=== PATIENT | female | born 1965 | race African-American/Black ===

== ENCOUNTER 2022-05-13 08:07 | Outpatient (CLI) | payer BC, SELFPAY ==
[2022-05-13 09:30] LABS: Basophils Percent Auto 0.3 % (0.2-1.2); Eosinophils Percent Auto 0.6 % (0-4.4); Hematocrit 37.2 % (37.0-47.0); Hemoglobin 11.7 g/dL (12.0-15.0); Immature Granulocyte Absolute 0.02 K/mm3 (0.00-0.031); Immature Granulocyte Percent A 0.3 % (0-0.5); Lymphocytes Absolute Auto 2.28 K/mm3 (0.9-3.2); Lymphocytes Percent Auto 36.8 % (18.3-44.2); Mean Corpuscular HGB Conc 31.5 g/dl (32-36); Mean Corpuscular Volume 85.7 fl (80-100); Mean Platelet Volume 10.6 fl (7.4-10.4); Monocytes Absolute Auto 0.5 K/mm3 (0.1-0.6); Monocytes Percent Auto 7.3 % (2.6-8.5); Neutrophils Absolute Auto 3.4 K/mm3 (1.3-6.7); Neutrophils Percent Auto 54.7 % (45.5-73.1); Platelet Count Result 255 k/mm3 (150-375); Red Blood Count 4.34 M/mm3 (4.2-5.4); Red Cell Distribution Width 14.6 % (11.5-14.5); White Blood Count 6.2 K/mm3 (4.5-10.0)
[2022-05-13 09:36] LABS: Bilirubin Urine Negative (Negative); Blood Urine Negative (Negative); Color Urine Yellow (Yellow); Glucose Urine UA Negative (Negative); Ketones Urine Negative (Negative); Leukocyte Esterase Ur Negative LEU/UL (Negative); Nitrate Urine Negative (Negative); Protein Urine Negative (Negative); Urobilinogen Urine 0.2 mg/dL (<2.0)
[2022-05-13 09:39] LABS: Add Urine Microscopic? NO; Albumin Level 4.7 g/dL (3.5-5.1); Anion Gap 5 mmol/L (8-16); Appearance Urine Clear (Clear); Blood Urea Nitrogen 15 mg/dL (7-17); Calcium 9.1 mg/dL (8.4-10.2); Carbon Dioxide 31 mmol/L (22-30); Chloride 104 mmol/L (98-107); Estimated Glomerular Filt Rate > 60; Glucose 109 mg/dL (65-110); Potassium 4.1 mmol/L (3.4-5.0); Sodium 140 mmol/L (137-145)
[2022-05-13 09:45] LABS: INR 0.9
[2022-05-13 09:46] LABS: Hemoglobin A1C 5.7 % (<5.7); Partial Thromboplastin Time 32.2 SECONDS (22.3-36.8)
[2022-05-13 09:46] LABS: Urine Cotinine NEGATIVE
== END 2022-05-13 08:08 | disposition home or self-care (01) ==
PROVIDERS: PCP Family Medicine; Visit Provider Orthopaedic Surgery
DX: M16.12 Unilateral primary osteoarthritis, left hip (principal); Z01.818 Encounter for other preprocedural examination
CPT/HCPCS: 80048; 80307; 81003; 82040; 83036; 85025; 85610; 85730; 86850; 86900; 86901; 87081

== ENCOUNTER 2022-05-25 00:02 | Day surgery (SDC) | payer BC, SELFPAY ==
[2022-05-13 08:20] VITALS: BMI 25.5
--- NOTE | 2022-05-13 08:40 | PC.NURSE ---
Report to the Outpatient Waiting Room, entrance under the green pavilion located off [facility], at time __1000 on date _05/25/22 . OR Time: _1200 . - You and your visitor will be asked a series of questions to screen for COVID 19 for your protection. - Only one visitor is allowed at this time. - The patient visitor is requested to leave or wait in car when not with patient. - A mask is required within the hospital. Patients may have clear liquids (water, carbonated beverages, clear teas, apple juice) until 3 hours prior to surgery with a maximum of 20 ounces. - No food from midnight until time of surgery - Infants may have breast milk until 4 hours before surgery, infant formula 6 hours prior to surgery. - Children will be allowed to drink immediately following surgery. If applicable, please bring a bottle or sippy cup to assist with drinking. Juice, water, soda, and popsicles are readily available. For infants on formula, please bring formula the day of surgery. Pacifiers are allowed. Take the following medications with a SIP of water the morning of surgery: ____BUSPIRONE,DULOXETINE Medications to discontinue per physician ALL VITAMINS AND SUPPLEMENTS 3 DAYS PRE OP Date to take last dose_05/21/22 Please no make-up, nail bahraini, hairspray, perfume, deodorant, or body powder the day of surgery. No jewelry (including any body piercings) or valuables the day of surgery, leave them at home. Please take a shower or bath the night before, or the morning of, surgery with an antibacterial soap. Wear comfortable, loose fitting clothing. Children are encouraged to wear pajamas. - Jewelry must be removed prior to entering the operating room. Rings and piercings that are not removed may be cut off. - The hospital will not accept responsibility for valuables. - Please leave all valuables, including medications, at home the day of surgery. If you are going home after surgery, a licensed otr truck driver must drive you home. - NO public transportation without another adult. - We recommend that an adult stay with you for 24 hours following discharge. - We also recommend that you do not drive, make important decision, drink alcoholic beverages, or take any drugs that were not prescribed by your health care provider for at least 24 hours after your discharge time. For Pediatric surgeries, we recommend two adults accompany the child home (only one inside the building at this time). Follow any additional instructions given to you from your surgeon. If you or anyone in your household have experienced Covid symptoms in the past week, please notify your surgeon or the nurse liaison at the phone number below for possible testing. VERBAL AND WRITTEN instructions given to _PATIENT and asked if any additional questions and then verbalized understanding. Patient advised to call surgeon office or pre surgery nurse liaison [phone] if any additional questions.
[2022-05-13 08:59] VITALS: BP 144/88; PULSE 93; RESP 18; TEMP 37.1; O2SAT 98
--- NOTE | 2022-05-24 14:58 | WPDANESEPPF ---
Anes - Initial Pre Proc Eval Procedure: Operation Date: 05/25/22 12:00 Proposed Procedures p Left Total Hip Arthroplasty - Arturo Grigsby MD Date/Time: 05/24/22 14:58 Surgeon: Arturo Grigsby MD Pre Op Diagnosis: Lt Hip DJD Patient Data Age: 56 Gender: F Height: 1.6 m Weight: 65.4 kg Last Vital Signs Temp 37.1 C 05/13/22 08:59 Pulse 93 05/13/22 08:59 Resp 18 05/13/22 08:59 BP 144/88 H 05/13/22 08:59 Pulse Ox 98 05/13/22 08:59 O2 Del Method Room Air 05/13/22 08:59 Allergies Allergy/AdvReac Type Severity Reaction Status Date / Time No Known Allergies Allergy Verified 05/25/22 09:54 Home Medications Medication Instructions Recorded Confirmed Type amlodipine 5 mg tablet 5 mg PO HS 02/18/22 05/25/22 History buspirone 10 mg tablet 10 mg PO BID 02/18/22 05/25/22 History duloxetine 30 mg capsule,delayed 30 mg PO DAILY 02/18/22 05/25/22 History release sprinkle acetaminophen 500 mg tablet 1,000 mg PO Q6H PRN Pain 05/13/22 05/25/22 History (Acetaminophen Extra Strength) calcium carbonate 600 mg-vitamin 1 tablet PO DAILY 05/13/22 05/25/22 History D3 10 mcg (400 unit) chewable tablet (Calcium 600 with Vitamin D3) pantoprazole 20 mg tablet,delayed 20 mg PO PRN PRN Heartburn 05/13/22 05/25/22 History release Patient hx anesthesia problems: none Family hx anesthesia problems: none Results Review: All pre-operative results and documents have been reviewed as part of the pre-operative evaluation. [facility] Past Medical History Medical History (Updated 05/24/22 @ 15:01 by Jorge Quintanilla MD) Arthritis Chronic GERD Closed fracture of right hip requiring operative repair IM Shahid insertion s/p fx: 1980 Depression HTN (hypertension) Social History Social History Smoking status: Never smoker Additional smoking assessment comments: DENIES ANY FORM OF TOBACCO USE Alcohol intake: never Substance use: never Living arrangements: with family Additional occupation/education comments: self employed Gender identity (if verbalized by the patient): Female Spiritual care concerns: No Anes - Eval Final PreProcedure Day of Procedure 05/24/22 14:58 Patient weight: normal Heart: regular rate and rhythm Lungs: clear to auscultation and normal air movement Airway: Mallampati scale class II Neurological: alert and oriented Last oral intake: >/= 8 hours ASA classification: II Emergent: no Anesthetic plan: proceed Anesthesia type and monitoring: general ETT Results Review: All pre-operative results and documents have been reviewed as part of the pre-operative evaluation. Informed Consent: The patient's anesthetic plan and its attendant risks and benefits were discussed with the patient/family/POA. Questions were solicited and answers provided to the satisfaction of the patient/family/POA.
--- NOTE | 2022-05-24 15:17 | PCCCNOTE ---
Per Registration notes NPR for CPT code 91232, surgery is documented as Left Total Hip Arthroplasty. Emailed [facility] which states that they can only call precert on the CPT code written. Called to Dr. Grigsby's office left vm message with hvac commercial salesperson, Bee. Return phone call received, Bee states that she has approval for correct CPT that matches hip and she will fax it to care coordination.
[2022-05-25] VITALS (18 sets, daily range): BP systolic 90–142; BP diastolic 53–91; PULSE 57–99; RESP 12–21; TEMP 36.4–36.8; O2SAT 95–100
--- NOTE | ~2022-05-25 | XR_ITS ---
EXAM: XR hip LT min 2V DATE: 05/25/2022 15:19 HISTORY: LT TOTAL HIP . COMPARISON: 02/18/2022. FINDINGS: Interval left total hip arthroplasty. Hardware in good position. No unexpected radiopaque foreign body. Subcutaneous emphysema. Osteitis pubis. IMPRESSION: Expected postsurgical change, with no radiographic evidence of procedure or hardware rela delmer complication. Reviewed, dictated and finalized at location K. IMPRESSION: Expected postsurgical change, with no radiographic evidence of proc edure or hardware related complication.
[2022-05-25] MEDS: ACETAMINOPHEN 500 MG TABLET 1000 MG PO (09:58)
--- NOTE | 2022-05-25 09:59 | WPDHPUPDATE1 ---
History and Physical Update Update Date/Time: 05/25/22 09:59 History and Physical has been reviewed, including an updated exam of the patient. There are NO changes in the patient's condition. Risks, benefits, and alternatives have been discussed and questions answered. Patient agrees to proceed with procedure.
[2022-05-25] MEDS: LACTATED RINGERS 1,000 ML 30 ML IV CONT ×2 (10:26→14:59)
[2022-05-25] MEDS: TRANEXAMIC ACID 1,000MG/ISO100 1,000 MG/100 ML BAG 200 MG IVPB (11:39)
[2022-05-25] MEDS: ceFAZolin 2 GM/D5W 50 ML 2 GM/50 ML BAG IVPB ×2 (12:18→20:45)
[2022-05-25] MEDS: TRANEXAMIC ACID 1,000 MG/10 ML AMPUL 1000 MG IV PUSH (14:12)
--- NOTE | 2022-05-25 15:25 | W.PM.PROC2 ---
Procedure Note - Detailed Date of Procedure 05/25/22 Pre-op Diagnosis Lt Hip DJD Post-op Diagnosis Same Procedure Performed L SB Surgeon Arturo Grigsby MD Anesthesia General Description of Procedure THE PATIENT WAS TAKEN TO THE OPERATING ROOM IN STABLE CONDITION AND WAS PLACED IN THE LATERAL DECUBITUS AND THE LEFT LOWER EXTREMITY WAS PREPPED AND DRAPED IN THE STERILE FASHION. INCISION WAS MADE IN THE POSTERIOR LATERAL SIDE OF THE HIP, DOWN TO THE FASCIA LAYER. THE FASCIA WAS INCISED. THE HIP WAS EXPOSED. THE SHORT EXTERNAL ROTATORS WERE EXPOSED. THE SCIATIC NERVE WAS IDENTIFIED. IT WAS SCARRED DOWN FROM PREVIOUS HIP TRAUMA. THE SCIATIC NERVE WAS THEN EXPOSED FOR IMPROVED VISUALIZATION. INCISION WAS MADE THROUGH THE SHORT EXTERNAL ROTATORS AND THE CAPSULE OF THE HIP JOINT. THE HIP WAS DISLOCATED. AN OSTEOTOMY WAS MADE TO THE FEMORAL NECK ABOUT 1 CM PROXIMAL TO THE LESSER TROCHANTER. THE ACETABULUM WAS EXPOSED. THERE WAS SEVERE DJD SEEN. BEGINNING WITH A 44 REAMER THE ACETABULUM WAS REAMED TO 49 MM. A 50 MM TRIAL WAS PLACED IN 35 DEG OF ABDUCTION AND ANTEVERSION WAS IN ALIGNMENT WITH THE TRANS ACETABULAR LIGAMENT. THE FIT WAS EXCELLENT. THE TRIAL WAS REMOVED. A 50 MM BIOMET G7 COMPONENT WAS THEN TAPPED IN TO PLACE IN 35 DEG OF ABDUCTION AND ANTEVERSION IN ALIGNMENT WITH THE TRANSVERSE ACETABULAR LIGAMENT. THE FIT WAS EXCELLENT. THE ACETABULAR LINER WAS PLACED AND CHECKED FOR STABILITY. NEXT THE FEMUR WAS PREPARED WITH INITIAL CANAL FINDER THEN SEQUENTIAL BROACHING WITH A TAPERLOC HIP SYSTEM, UNTIL A 7 BROACH FIT WELL IN 15 OF ANTEVERSION. A -3 HIGH OFFSET NECK WITH 36 MM HEAD TRIAL WAS PLACED. THE SHUCK TEST WAS EXCELLENT AND THE STABILITY IN FLEXION AND ROTATION WAS EXCELLENT. LEG LENGTHS WERE GROSSLY EQUAL. TRIALS WERE REMOVED. A BIOMET TAPERLOC 7 STEM WAS PLACED WITH A HIGH OFFSET NECK THE FIT WAS EXCELLENT IN 15 DEG OF ANTEVERSION. A -3 CERAMIC 36 MM FEMORAL CERAMIC HEAD WAS PLACED. THE HIP WAS TRIALED AND THE STABILITY WAS EXCELLENT WERE THE LEG LENGTHS AND THE SHUCK TEST. THE WOUND WAS IRRIGATED WITH STERILE BETADINE AND WATER FOR 3 MIN. THEN WASHED AGAIN. THE CAPSULE AND THE EXTERNAL ROTATORS WERE APPROXIMATED WITH NUMBER 1 VICRYL. THE FASCIA WITH No 2 QUIL AND THE SUB CUTANEOUS LAYER WITH 2-0 ABSORBABLE SUTURE WITH A RUNNING 3-0 SUBCUTICULAR LAYER WELL. DERMABOND WAS PLACED AND STERILE DRESSING WAS APPLIED. PATIENT WAS PLACED BACK ON TO THE SUPINE POSITION AND WAS EXTUBATED Estimated Blood Loss -200.0 Complications No immediate complications Condition Stable Disposition PACU
[2022-05-25] MEDS: fentaNYL CITRATE INJ (*CRX) 100 MCG/2 ML VIAL 25 MCG IV PUSH ×4 (15:37→16:03)
[2022-05-25] MEDS: oxyCODONE HCL (*CRX) 5 MG TAB IR PO (16:44)
--- NOTE | 2022-05-25 17:13 | SUR.PHASEI ---
DINNER ORDERED. AT BEDSIDE. AWAITING CALL FROM [facility] TO ADMIT PATIENT.
--- NOTE | 2022-05-25 18:09 | PC.NURSE ---
This patient, Nahomy Manley, was admitted to Medical Room 254-01. Patient/family oriented to hospital policies and general routines including ID bracelet, bed and alarms, visiting hours, pain management, procedures, bathroom and other care routines, personal items, smoking policy, room service/diet, and visiting hours. Information on how to activate the Rapid Response Team has been discussed. Patient/Family are encouraged to report perceived risks to care and to ask questions if they do not understand what they are told or what they should do.
[2022-05-25] MEDS: DEXTROSE 5%/0.45% SOD CHL 1,000 ML 80 ML IV CONT (18:36)
[2022-05-25] MEDS: ONDANSETRON INJ 4 MG/2 ML VIAL IV PUSH ×2 (18:39→22:58)
[2022-05-25] MEDS: KETOROLAC 15 MG/ML VIAL (*BKC) IV PUSH ×2 (18:42→23:00)
[2022-05-25] MEDS: busPIRone HCL 10 MG TABLET PO (18:43)
[2022-05-25] MEDS: amLODIPine BESYLATE 5 MG TABLET PO (20:45)
[2022-05-26] VITALS: BP 110/64; PULSE 96; RESP 18; TEMP 36.7; O2SAT 100
[2022-05-26] MEDS: HYDROcodone/acetaminophen (*CRX) 7.5-325 MG TABLET 1 TAB PO (03:06)
[2022-05-26] MEDS: ceFAZolin 2 GM/D5W 50 ML 2 GM/50 ML BAG IVPB ×2 (03:06→12:14)
[2022-05-26 04:00] VITALS: BP 108/65; PULSE 84; RESP 18; TEMP 36.7; O2SAT 100
[2022-05-26] MEDS: KETOROLAC 15 MG/ML VIAL (*BKC) IV PUSH ×3 (05:00→17:15)
[2022-05-26] MEDS: MORPHINE SULFATE (*CRX) 4 MG/ML INJ 3 MG IV PUSH (05:03)
[2022-05-26 06:03] LABS: Basophils Percent Auto 0.1 % (0.2-1.2); Hematocrit 27.6 % (37.0-47.0); Hemoglobin 8.7 g/dL (12.0-15.0); Immature Granulocyte Absolute 0.08 K/mm3 (0.00-0.031); Immature Granulocyte Percent A 0.6 % (0-0.5); Lymphocytes Absolute Auto 1.16 K/mm3 (0.9-3.2); Lymphocytes Percent Auto 8.7 % (18.3-44.2); Mean Corpuscular HGB Conc 31.5 g/dl (32-36); Mean Corpuscular Hemoglobin 26.9 pg (26-34); Mean Corpuscular Volume 85.4 fl (80-100); Mean Platelet Volume 10.9 fl (7.4-10.4); Monocytes Absolute Auto 1.2 K/mm3 (0.1-0.6); Monocytes Percent Auto 9.3 % (2.6-8.5); Neutrophils Absolute Auto 10.9 K/mm3 (1.3-6.7); Neutrophils Percent Auto 81.3 % (45.5-73.1); Platelet Count Result 201 k/mm3 (150-375); Red Blood Count 3.23 M/mm3 (4.2-5.4); Red Cell Distribution Width 14.3 % (11.5-14.5); White Blood Count 13.4 K/mm3 (4.5-10.0)
[2022-05-26 06:21] LABS: Anion Gap 5 mmol/L (8-16); Blood Urea Nitrogen 12 mg/dL (7-17); Calcium 8.7 mg/dL (8.4-10.2); Carbon Dioxide 28 mmol/L (22-30); Chloride 102 mmol/L (98-107); Estimated CRCL calculation 72 ml/min; Estimated Glomerular Filt Rate > 60; Glucose 131 mg/dL (65-110); Potassium 3.9 mmol/L (3.4-5.0); Sodium 135 mmol/L (137-145)
[2022-05-26] MEDS: ASPIRIN 325 MG ENTERIC TABLET 650 MG PO (09:19)
[2022-05-26] MEDS: busPIRone HCL 10 MG TABLET PO (09:19)
[2022-05-26] MEDS: SENNA/DOCUSATE SODIUM TABLET 2 TAB PO ×2 (09:19→17:14)
[2022-05-26] MEDS: polyethylene glycoL 3350 17 GM POWD.PACK PO (09:19)
[2022-05-26 10:56] VITALS: BP 115/63; PULSE 66; RESP 18; TEMP 36.5; O2SAT 100
--- NOTE | 2022-05-26 11:36 | P.PNAN_ITS ---
Anes - Prog Note Post-Op Date/Time: 05/26/22 11:36 Vital Signs: Last Vital Signs Temp 36.5 C 05/26/22 10:56 Pulse 66 05/26/22 10:56 Resp 18 05/26/22 10:56 BP 115/63 05/26/22 10:56 Pulse Ox 100 05/26/22 10:56 O2 Del Method Room Air 05/26/22 09:20 O2 Flow Rate 6 05/25/22 15:15 Pain Score (VAS): 0 I/O: Intake & Output 05/25/22 05/26/22 05/26/22 23:59 07:59 15:59 Intake Total 250 50 240 Output Total 650 Balance 250 -600 240 Laboratory Tests 05/26/22 05:33 05/26/22 05:33 05/26/22 05/26/22 05:33 05:33 WBC 13.4 H RBC 3.23 L Hgb 8.7 L D Hct 27.6 L MCV 85.4 MCH 26.9 MCHC 31.5 L RDW 14.3 Plt Count 201 MPV 10.9 H Immature Gran % (Auto) 0.6 H Neut % (Auto) 81.3 H Lymph % (Auto) 8.7 L Gaines % (Auto) 9.3 H Eos % (Auto) 0.0 Baso % (Auto) 0.1 L Lymph # (Auto) 1.16 Gaines # (Auto) 1.2 H Eos # (Auto) 0.0 Baso # (Auto) 0.0 Abs Immat Gran (auto) 0.08 H Absolute Neuts (auto) 10.9 H Absolute Nucleated RBC 0.0 Nucleated RBC % 0.0 Sodium 135 L Potassium 3.9 Chloride 102 Carbon Dioxide 28 Anion Gap 5 L BUN 12 Creatinine 0.60 L Estim Creat Clear Calc 72 Estimated GFR > 60 Glucose 131 H Calcium 8.7 Patient Feedback: Patient satisfied with anesthetic care.
--- NOTE | 2022-05-26 14:51 | PM.PNORT ---
Progress Note: A&P Assessment and Plan (1) Degenerative joint disease of left hip: Qualifiers: Osteoarthritis type: primary Qualified Code(s): M16.12 - Unilateral primary osteoarthritis, left hip Code(s): M16.12 - Unilateral primary osteoarthritis, left hip Status: Acute Assessment and Plan: POD 1 DOING WELL. OK TO DC HOME F/U IN 3 WEEKS. Plan POD 1 DOING WELL. OK TO DC HOME F/U IN 3 WEEKS Subjective Subjective Date/Time Seen: 05/26/22 14:51 POD 1 DOING WELL. PAIN WELL CONTROLLED. NO CALF PAIN Exam Extrem: Other: VSS AFEBRILE DRESSING DRY NV INTACT NEG HOMANS SIGN CALF SOFT. Objective Data Vital Signs Vital Signs: Vital Signs - 24 hr 05/25/22 14:59 05/25/22 15:15 05/25/22 15:30 Temperature 36.5 C Pulse Rate 99 79 75 Respiratory Rate 14 21 H 21 H Blood Pressure 142/76 H 116/68 112/74 Pulse Oximetry 100 100 100 Oxygen Delivery Simple Face Mask Simple Face Mask Room Air Oxygen Flow Rate 6 6 05/25/22 15:45 05/25/22 16:00 05/25/22 16:15 Temperature Pulse Rate 72 69 88 Respiratory Rate 17 16 16 Blood Pressure 113/74 109/70 116/76 Pulse Oximetry 97 98 100 Oxygen Delivery Room Air Room Air Room Air Oxygen Flow Rate 05/25/22 16:23 05/25/22 16:35 05/25/22 16:50 Temperature Pulse Rate 87 93 82 Respiratory Rate 16 16 16 Blood Pressure 111/67 114/60 107/62 Pulse Oximetry 100 100 97 Oxygen Delivery Room Air Room Air Room Air Oxygen Flow Rate 05/25/22 17:05 05/25/22 17:20 05/25/22 17:35 Temperature Pulse Rate 82 77 84 Respiratory Rate 16 16 16 Blood Pressure 102/58 L 107/60 91/53 L Pulse Oximetry 97 97 97 Oxygen Delivery Room Air Room Air Room Air Oxygen Flow Rate 05/25/22 17:50 05/25/22 15:44 05/25/22 16:14 Temperature 36.8 C 36.4 C Pulse Rate 84 82 82 Respiratory Rate 16 12 14 Blood Pressure 90/53 L 105/61 121/77 Pulse Oximetry 99 95 95 Oxygen Delivery Room Air Oxygen Flow Rate 05/25/22 17:14 05/25/22 20:20 05/26/22 00:00 Temperature 36.6 C 36.6 C 36.7 C Pulse Rate 77 57 L 96 Respiratory Rate 16 18 18 Blood Pressure 118/79 113/67 110/64 Pulse Oximetry 99 96 100 Oxygen Delivery Oxygen Flow Rate 05/25/22 20:00 05/26/22 04:00 05/26/22 08:14 Temperature 36.7 C Pulse Rate 84 Respiratory Rate 18 Blood Pressure 108/65 Pulse Oximetry 100 Oxygen Delivery Room Air Room Air Oxygen Flow Rate 05/26/22 10:56 05/26/22 09:20 Temperature 36.5 C Pulse Rate 66 Respiratory Rate 18 Blood Pressure 115/63 Pulse Oximetry 100 Oxygen Delivery Room Air Oxygen Flow Rate Intake/Output Intake/Output: Intake & Output 05/23/22 05/24/22 05/25/22 05/26/22 23:59 23:59 23:59 23:59 Intake Total 400 290 Output Total 650 Balance 400 -360 Meds/Results Medications: Active Medications Generic Name Dose Route Start Last Admin Trade Name Matthewq PRN Reason Stop Dose Admin Acetaminophen 1,000 mg 05/25/22 18:01 Acetaminophen 500 Mg Tablet PO Q6H PRN Pain scale 1-4 Hydrocodone Bitart/Acetaminophen 1 tab 05/25/22 15:29 05/26/22 03:06 Hydrocodone/Acetaminophen (*Crx) 7.5-325 Mg Tablet PO 1 tab Q3H PRN Administration Pain Rated 4-6 Amlodipine Besylate 5 mg 05/25/22 21:00 05/25/22 20:45 Amlodipine Besylate 5 Mg Tablet PO 5 mg HS DEMETRIO Administration Aspirin 650 mg 05/26/22 09:00 05/26/22 09:19 Aspirin 325 Mg Enteric Tablet PO 650 mg DAILY DEMETRIO Administration Buspirone HCl 10 mg 05/25/22 18:01 05/26/22 09:19 Buspirone Hcl 10 Mg Tablet PO 10 mg BID DEMETRIO Administration Calcium Carbonate 500 mg 05/26/22 09:00 05/26/22 09:19 Calcium/Vitamin D 500 Mg Tablet PO 500 mg DAILY DEMETRIO Administration Diazepam 5 mg 05/25/22 15:29 Diazepam (*Crx) 5 Mg Tablet PO Q6H PRN Anxiety/Muscle Spasm Hydroxyzine HCl 50 mg 05/25/22 15:29 Hydroxyzine Hcl 25 Mg Tablet PO Q4H PRN Itching Lactated Ringer's 1,00
[2022-05-26 15:02] VITALS: BP 111/55; PULSE 79; RESP 18; TEMP 36.7; O2SAT 99
--- NOTE | 2022-05-26 17:18 | PM.DS ---
DS: Admitting Diagnosis Discharge Date 05/26/22 Admitting Diagnosis LEFT HIP DJD DS: Discharge Diagnosis Discharge Diagnosis (1) Degenerative joint disease of left hip: Qualifiers: Osteoarthritis type: primary Qualified Code(s): M16.12 - Unilateral primary osteoarthritis, left hip Code(s): M16.12 - Unilateral primary osteoarthritis, left hip Status: Acute Plan LEFT SB DS: Summary Hospital Course Reason for hospitalization: LEFT SB Hospital Course: PATIENT WAS ADMITTED S/P TOTAL LEFT TOTAL HIP ARTHROPLASTY FOR POSTOPERATIVE MEDICAL MANAGEMENT, PAIN CONTROL AND MOBILIZATION WITH PHYSICAL AND OCCUPATIONAL THERAPY. THE PATIENT PROGRESSED WELL WITH PT/OT. LABS AND VITALS REMAINED STABLE AND PAIN WELL CONTROLLED. THE PATIENT HAS BEEN CLEARED TO BE DISCHARGED HOME. FOLLOW UP APPOINTMENT SCHEDULED. DISCHARGE INSTRUCTIONS DISCUSSED AT LENGTH WITH THE PATIENT. MEDICATIONS REVIEWED. Status at Discharge Cognitive/behavioral status at discharge: STABLE Time Spent with Patient Time attestation: time spent providing and/or coordinating discharge services: 15 MIN DS: Data Data Completed and Pending Labs on day of discharge: Labs from last 24 hours 05/26/22 05/26/22 05:33 05:33 WBC 13.4 H RBC 3.23 L Hgb 8.7 L D Hct 27.6 L MCV 85.4 MCH 26.9 MCHC 31.5 L RDW 14.3 Plt Count 201 MPV 10.9 H Immature Gran % (Auto) 0.6 H Neut % (Auto) 81.3 H Lymph % (Auto) 8.7 L Kent % (Auto) 9.3 H Eos % (Auto) 0.0 Baso % (Auto) 0.1 L Lymph # (Auto) 1.16 Kent # (Auto) 1.2 H Eos # (Auto) 0.0 Baso # (Auto) 0.0 Abs Immat Gran (auto) 0.08 H Absolute Neuts (auto) 10.9 H Absolute Nucleated RBC 0.0 Nucleated RBC % 0.0 Sodium 135 L Potassium 3.9 Chloride 102 Carbon Dioxide 28 Anion Gap 5 L BUN 12 Creatinine 0.60 L Estim Creat Clear Calc 72 Estimated GFR > 60 Glucose 131 H Calcium 8.7 Procedures/Treatments: L SB Discharge Plan Discharge Patient Disposition: Home Health Service Discharge Instructions: Per Care Coordination Patient has been arranged to have [facility] for RN, PT, [phone] FRANCISCA please fax completed discharge instructions to [phone] [facility] [address] [facility] [address] [place] [id number] POST OPERATIVE DISCHARGE INSTRUCTIONS FOLLOWING TOTAL HIP REPLACEMENT SURGERY ? Your dressing will be changed prior to your discharge. You will be sent home with one additional dressing to be changed on post op day 7 by the home health RN. You may remove the dressing on post op day 14. Your incision was closed with dermabond, allow the dermabond to fall off naturally once your dressing is removed. Do not pull at the dermabond or disrupt incision healing. ? You may shower with your dressing but do not submerge in a bath tub. ? Do not drive or operate machinery until you are released by Dr. Grigsby. ? Do not walk without a walker for any reason until you are released by Dr. Grigsby. ? Continue to apply ice to the hip intermittently for additional pain relief. Protect your skin with a towel or pillow case. ? Unless otherwise instructed by Dr. Grigsby you me be weight bearing as tolerated with your walker. ? Continue to follow strict total hip replacement precautions. ? Your first post op appointment was sent to you via mail preoperatively. If you have any questions or are unable to make your appointment, please contact our office for scheduling questions. ? Your medications have been sent to your pharmacy. You have been sent home with pain medication. We have also sent you with a stool softener as narcotics can cause constipation. Please keep this in mind during your postoperative recovery. If you are not experiencing regular bowel movements, please contact our office for further instruction. ? Please contact o
== END 2022-05-26 18:30 | disposition home health service (06) ==
LOC: ANHSURGERY 09:46 → ANH2MED 17:54
PROVIDERS: PCP Family Medicine; Visit Provider Orthopaedic Surgery
PROC: (CPT 27130; principal; 2022-05-25 12:00)
DX: M16.12 Unilateral primary osteoarthritis, left hip (principal); I10 Essential (primary) hypertension; K21.9 Gastro-esophageal reflux disease without esophagitis; F32.A Depression, unspecified
CPT/HCPCS: 27130; 36415; 73502; 80048; 85025; 97110; 97116; 97161; 97165; 97530; 97535; A9270; C1776; J0171; J0330; J0690; J1100; J1170; J1885; J2250; J2270; J2370; J2405; J2704; J2710; J2795; J3010; J7120